=== PATIENT | female | born 1950 | race Caucasian/White ===

== ENCOUNTER 2019-02-19 17:05 | Emergency (ER) | payer OTHER ==
[2019-02-19] MEDS ORDERED: Magnesium Citrate Solution 296 ML Bottle PO ONE (17:33)
--- NOTE | 2019-02-19 17:50 | EDM.PDOC ---
ED HPI GENERAL MEDICAL PROBLEM - General Chief Complaint: Abdominal Pain Stated Complaint: ABDOMINAL PAIN Time Seen by Provider: 02/19/19 17:30 Source of Information: Reports: Patient, RN Notes Reviewed History Limitations: Reports: No Limitations - History of Present Illness INITIAL COMMENTS - FREE TEXT/NARRATIVE: Patient is a 68-year-old female who presents to the ED for the evaluation of lower abdominal pain. The patient states that she feels somewhat constipated, she has been traveling for the past week, and has not had regular bathroom habits since then. She notes her last bowel movement was roughly 5 days ago. She states she normally has a bowel movement every 2 or 3 days. She did try to do a fleets enema today with little to no results. She states there is some thick mucous like secretions coming out but no actual fecal matter. The patient states that she has also taken some senna roughly an hour prior to arrival to the ED. She has been trying to increase her oral fluid intake. She notes that she has not had much of an appetite as she feels bloated, she has been able to eat with no nausea or vomiting. She states that the cramps come and go in nature, and states when they are present they are really severe. Bilateral Lower Abdomen Pain Score (Numeric/FACES): 10 - Related Data Allergies Allergy/AdvReac Type Severity Reaction Status Date / Time ees 400 Allergy Stomach Uncoded 02/19/19 17:17 Ache Home Meds: Home Meds Aspirin 325 mg PO DAILY 02/19/19 [History] Budesonide/Formoterol [Symbicort 80-4.5 MCG] 2 puff INH ASDIRECTED 02/19/19 [ History] Furosemide [Lasix] 40 mg PO DAILY 02/19/19 [History] Gabapentin [Neurontin] 100 mg PO DAILY 02/19/19 [History] Levothyroxine 75 mcg PO TUTHSA 02/19/19 [History] Levothyroxine [Synthroid] 50 mcg PO MOWEFR 02/19/19 [History] Omeprazole Magnesium [Prilosec Otc] 20 mg PO DAILY 02/19/19 [History] Potassium Chloride 10 meq PO DAILY 02/19/19 [History] Simvastatin [Zocor] 40 mg PO DAILY 02/19/19 [History] Zolpidem Tartrate [Ambien] 10 mg PO BEDTIME 02/19/19 [History] oxyCODONE 10 - 325 mg PO ASDIRECTED 02/19/19 [History] Past Medical History Cardiovascular History: Reports: High Cholesterol, Hypertension Respiratory History: Reports: Other (See Below) Other Respiratory History: seasonal allergies Gastrointestinal History: Reports: Chronic Constipation, Hemorrhoids Musculoskeletal History: Reports: Other (See Below) Other Musculoskeletal History: knee scope menicus scraped Endocrine/Metabolic History: Reports: Hypoparathyroidism Other Endocrine/Metabolic History: right thyroidectomy - Past Surgical History GI Surgical History: Reports: Cholecystectomy Female Surgical History: Reports: Hysterectomy Social & Family History - Tobacco Use Smoking Status *Q: Former Smoker Used Tobacco, but Quit: Yes Month/Year Tobacco Last Used: 20 yr - Caffeine Use Caffeine Use: Reports: Coffee, Tea - Recreational Drug Use Recreational Drug Use: No ED ROS GENERAL - Review of Systems Review Of Systems: See Below Constitutional: Reports: No Symptoms HEENT: Reports: No Symptoms Respiratory: Reports: No Symptoms Cardiovascular: Reports: No Symptoms Endocrine: Reports: No Symptoms GI/Abdominal: Reports: Abdominal Pain (lower), Constipation, Flatus. Denies: Diarrhea, Nausea, Vomiting : Reports: No Symptoms Musculoskeletal: Reports: No Symptoms Skin: Reports: No Symptoms Neurological: Reports: No Symptoms Psychiatric: Reports: No Symptoms Hematologic/Lymphatic: Reports: No Symptoms Immunologic: Reports: No Symptoms ED EXAM, GI/ABD - Physical Exam Exam: See Below Exam Limited By: No Limitations General Appearance: Alert, WD/WN, No Apparent Distress Eyes: Bilateral: Normal Appearance Ears: Normal External Exam Nose: Normal Inspection Throat/Mouth: Normal Inspection Head: Atraumatic, Normocephalic Neck: Normal Inspection Respiratory/Chest: No Respiratory Distress, Lungs Clear, Normal Breath Sounds, No Accessory Muscle Use, Chest Non-Tender Cardiovascular: Normal Peripheral Pulses, Regular Rate, Rhythm, No Murmur GI/Abdominal Exam: Normal Bowel Sounds, Soft, Distended (slight distension, patient feels more bloated than normal), Tender (lower abdomen with palpation). No: Guarding, Rigid, Rebound Extremities: Normal Inspection, Normal Capillary Refill Neurological: Alert, Oriented, Normal Cognition, No Motor/Sensory Deficits Psychiatric: Normal Affect, Normal Mood Skin Exam: Warm, Dry, Intact, Normal Color, No Rash Course - Vital Signs Last Recorded V/S: Last Vital Signs Temp 98.2 F 02/19/19 17:14 Pulse 82 02/19/19 17:14 Resp 20 02/19/19 17:14 BP 158/79 H 02/19/19 17:14 Pulse Ox 98 02/19/19 17:14 - Orders/Labs/Meds Orders: Active Orders 24 hr Category Date Time Status Enema [RC] ASDIRECTED Care 02/19/19 19:57 Active Peripheral IV Care [RC] . DIRECTED Care 02/19/19 21:29 Active Abdomen 2V AP Flat Upright [CR] Stat Exams 02/19/19 17:32 Taken Abdomen Pelvis w Cont [CT] Stat Exams 02/19/19 21:28 Taken Sodium Chloride 0.9% [Normal Saline] 1,000 ml Med 02/19/19 21:30 Active IV ASDIRECTED Sodium Chloride 0.9% [Saline Flush] Med 02/19/19 21:29 Active 10 ml FLUSH ASDIRECTED PRN Peripheral IV Insertion Adult [OM.PC] Routine Oth 02/19/19 21:29 Ordered Medication Orders Sodium Chloride (Normal Saline) 1,000 mls @ 999 mls/hr IV ASDIRECTED NEHEMIAH Last Admin: 02/19/19 22:01 Dose: 999 mls/hr Sodium Chloride (Saline Flush) 10 ml FLUSH ASDIRECTED PRN PRN Reason: Keep Vein Open Last Admin: 02/19/19 22:05 Dose: 10 ml Labs: Laboratory Tests 02/19/19 02/19/19 Range/Units 21:34 21:34 WBC 12.87 H (3.98-10.04) K/mm3 RBC 4.90 (3.98-5.22) M/mm3 Hgb 14.6 (11.2-15.7) gm/L Hct 43.6 (34.1-44.9) % MCV 89.0 (79.4-94.8) fl MCH 29.8 (25.6-32.2) pg MCHC 33.5 (32.2-35.5) g/dl RDW Std Deviation 44.7 (36.4-46.3) fL Plt Count 343 (182-369) K/mm3 MPV 9.4 (9.4-12.3) fl Neutrophils % (Manual) 64 H (40-60) % Band Neutrophils % 1 (0-10) % Lymphocytes % (Manual) 28 (20-40) % Atypical Lymphs % 0 % Monocytes % (Manual) 7 (2-10) % Eosinophils % (Manual) 0 L (0.7-5.8) % Basophils % (Manual) 0 L (0.1-1.2) Platelet Estimate Adequate RBC Morph Comment Normal Sodium 141 (136-145) mEq/L Potassium 3.5 (3.5-5.1) mEq/L Chloride 104 (98-107) mEq/L Carbon Dioxide 22 (21-32) mEq/L Anion Gap 18.5 H (5-15) BUN 19 H (7-18) mg/dL Creatinine 1.0 (0.55-1.02) mg/dL Est Cr Clr Drug Dosing 45.78 mL/min Estimated GFR (MDRD) 55 (>60) mL/min BUN/Creatinine Ratio 19.0 H (14-18) Glucose 137 H (80-115) mg/dL Calcium 9.6 (8.5-10.1) mg/dL Total Bilirubin 0.6 (0.2-1.0) mg/dL AST 27 (15-37) U/L ALT 40 (14-59) U/L Alkaline Phosphatase 108 (46-116) U/L Total Protein 7.3 (6.4-8.2) g/dl Albumin 3.8 (3.4-5.0) g/dl Globulin 3.5 gm/dL Albumin/Globulin Ratio 1.1 (1-2) Meds: Medications Generic Name Dose Route Start Last Admin Trade Name Freq PRN Reason Stop Dose Admin Sodium Chloride 1,000 mls @ 999 mls/hr 02/19/19 21:30 02/19/19 22:01 Normal Saline IV 999 mls/hr ASDIRECTED NEHEMIAH Administration Sodium Chloride 10 ml 02/19/19 21:29 02/19/19 22:05 Saline Flush FLUSH 10 ml ASDIRECTED PRN Administration Keep Vein Open Discontinued Medications Generic Name Dose Route Start Last Admin Trade Name Freq PRN Reason Stop Dose Admin Bisacodyl 10 mg 02/19/19 23:04 02/19/19 23:16 Dulcolax RECTAL 02/19/19 23:05 10 mg ONETIME ONE Administration Dicyclomine HCl 20 mg 02/19/19 18:05 02/19/19 18:16 Bentyl PO 02/19/19 18:06 20 mg ONETIME ONE Administration Hydromorphone HCl 1 mg 02/19/19 21:19 Dilaudid IM 02/19/19 21:20 ONETIME ONE Hydromorphone HCl 1 mg 02/19/19 21:53 02/19/19 22:03 Dilaudid IVPUSH 02/19/19 21:54 1 mg ONETIME ONE Administration Iohexol 100 ml 02/19/19 22:15 02/19/19 22:40 Omnipaque-300 IVPUSH 02/19/19 22:16 100 ml ONETIME ONE Administration Magnesium Citrate 296 ml 02/19/19 17:33 02/19/19 17:40 Citrate Of Magnesia PO 02/19/19 17:34 296 ml ONETIME ONE Administration Magnesium Citrate 296 ml 02/20/19 00:13 Citrate Of Magnesia PO 02/20/19 00:14 ONETIME ONE Ondansetron HCl 4 mg 02/19/19 21:29 02/19/19 22:03 Zofran IVPUSH 02/19/19 21:30 4 mg ONETIME ONE Administration - Re-Assessments/Exams Free Text/Narrative Re-Assessment/Exam: 02/19/19 17:49 Patient presents to the ED for evaluation of possible constipation. I have ordered flat and upright abdomen x-rays to be obtained, and a follow-up magnesium citrate, we'll have the nurse give one half bottle and repeat in an hour if no results. The patient will receive a dose of dicyclomine if the abdominal cramping does become severe. 02/19/19 20:00 The patient was reassessed at bedside, and she states that she has not had much for bowel movement yet. I did order the dicyclomine for abdominal cramping, she states that she still is having some abdominal cramping. I did order a soapsuds enema to see if this would help provide her results. 02/19/19 21:08 The RN informs me that the patient was not able to hold in the enema very long, so she is unsure if the patient will have any results from this. 02/19/19 21:31 The patient was reassessed at bedside, and still has not had much for a bowel movement despite having one bottle of mag citrate and a partial soapsuds enema. Although the abdominal x-ray did not show any bowel dilation, the patient does have bowel sounds the patient would like further imaging done, I have ordered an abdominal pelvis CT with contrast hopefully the contrast will provide her some laxative effect as well. I have ordered IV fluids, 1 mg IV Dilaudid, and 4 mg Zofran. I'm hoping that the pain medication will provide her some pain relief so that she may relax and maybe have a bowel movement in the meantime. 02/19/19 23:17 Patient is back from CT, the nurse informed me that she still has not had a very productive bowel movement this time. I did order a Dulcolax suppository to see if this might not provider relief. Official radiology read is pending on the patient's CT as of yet, however there is a diffuse amount of stool in the large colon. There does not appear to be any obstruction. 02/19/19 23:[address] is read, and notes only large colonic stool pertinent. There is bowel wall thickening of the sigmoid colon and rectum. There are inflammatory changes in the adjacent fat. Nonspecific infectious or inflammatory etiology involving the sigmoid colon and rectum. As her labs do not necessarily correlate to any sort of bacterial infection at this time. This is likely just irritation due to the large amount of stool in her colon. At this point in time there is not a lot of other modalities I can provide to the patient. I will discharge the patient home, with instructions for close follow-up if she does not have a good bowel movement by tomorrow morning. Departure - Departure Time of Disposition: 00:01 Disposition: Home, Self-Care 01 Condition: Fair Clinical Impression: Constipation Qualifiers: Constipation type: other constipation type Qualified Code(s): K59.09 - Other constipation - Discharge Information *PRESCRIPTION DRUG MONITORING PROGRAM REVIEWED*: No *COPY OF PRESCRIPTION DRUG MONITORING REPORT IN PATIENT CAITIE: No Instructions: Constipation, Adult, [id number] Referrals: PCP,Not In Area [Primary Care Provider] - Forms: ED Department Discharge Additional Instructions: You have been evaluated in the ED today for your constipation. You have been given magnesium citrate, a laxative, an enema, and a Dulcolax suppository with IV fluids for management of this. You've also have been given some IV pain medications to try to relieve the abdominal cramping. Your abdominal CT demonstrated a large amount of stool in your colon. But there does not appear to be any signs of obstruction or strictures that would cause a blockage. At this point in time there are not a whole lot of other medications that can be provided to help to achieve a bowel movement. You have been given another bottle of magnesium citrate, Please take this tomorrow AM, if you have not had a good bowel movement by then. Recommend that you start taking a stool softener like MiraLAX, or Dulcolax on a daily basis, to provide a good bowel regimen. Please return to the ED if your symptoms should change or worsen. - My Orders Last 24 Hours: My Active Orders 02/19/19 17:32 Abdomen 2V AP Flat Upright [CR] Stat 02/19/19 19:57 Enema [RC] ASDIRECTED 02/19/19 21:28 Abdomen Pelvis w Cont [CT] Stat 02/19/19 21:29 Peripheral IV Care [RC] . DIRECTED Sodium Chloride 0.9% [Saline Flush] 10 ml FLUSH ASDIRECTED PRN Peripheral IV Insertion Adult [OM.PC] Routine 02/19/19 21:30 Sodium Chloride 0.9% [Normal Saline] 1,000 ml IV ASDIRECTED - Assessment/Plan Last 24 Hours: My Active Orders 02/19/19 17:32 Abdomen 2V AP Flat Upright [CR] Stat 02/19/19 19:57 Enema [RC] ASDIRECTED 02/19/19 21:28 Abdomen Pelvis w Cont [CT] Stat 02/19/19 21:29 Peripheral IV Care [RC] . DIRECTED Sodium Chloride 0.9% [Saline Flush] 10 ml FLUSH ASDIRECTED PRN Peripheral IV Insertion Adult [OM.PC] Routine 02/19/19 21:30 Sodium Chloride 0.9% [Normal Saline] 1,000 ml IV ASDIRECTED
[2019-02-19] MEDS ORDERED: Dicyclomine 10 MG Cap PO ONE (18:05)
[2019-02-19] MEDS ORDERED: HYDROmorphone 1 MG/ML Syringe IM ONE (21:19)
[2019-02-19] MEDS ORDERED: Ondansetron 4 MG/2 ML SDV IVPUSH ONE (21:29)
[2019-02-19] MEDS ORDERED: Sodium Chloride 0.9% 10 ML Syringe FLUSH PRN (21:29)
[2019-02-19] MEDS ORDERED: Sodium Chloride 0.9% 1,000 ML IV SCH (21:30)
[2019-02-19] MEDS ORDERED: HYDROmorphone 1 MG/ML Syringe IVPUSH ONE (21:53)
[2019-02-19] MEDS ORDERED: Iohexol 647 MG/ML 100 ML Bottle IVPUSH ONE (22:15)
[2019-02-19] MEDS ORDERED: Bisacodyl 10 MG Supp RECTAL ONE (23:04)
[2019-02-20] MEDS ORDERED: Magnesium Citrate Solution 296 ML Bottle PO ONE (00:13)
--- NOTE | 2019-02-21 19:35 | CR ---
Abdomen: Supine and upright views of the abdomen were obtained. Comparison: No previous abdominal x-ray. Bowel gas pattern appears within normal limits. Minimal increased stool is seen within the colon. Surgical clips are seen from prior cholecystectomy. Calcifications are noted within the pelvis which are compatible with phleboliths. No free air is seen. Slight scoliosis is noted within the spine on the upright view. Impression: 1. Incidental findings. Diagnostic code #2
--- NOTE | 2019-02-22 06:22 | CT ---
CT abdomen and pelvis Technique: Multiple axial sections were obtained from above the dome of the diaphragm inferiorly through the pubic symphysis. Intravenous contrast was utilized. Oral contrast also utilized. Delayed images were obtained through the bladder. Comparison: Prior abdominal x-ray performed earlier on the same day (5:45 PM). Findings: Bowel wall thickening with surrounding inflammatory change is seen within the sigmoid colon as well as bowel wall thickening within the rectum. Bowel wall thickening is also noted within portions of the descending and transverse colon. Mild increased stool is noted within portions of the colon. Small portion of the visualized lung bases shows nothing acute. Liver contains no focal abnormality. Spleen appears within normal limits. Adrenal glands show no nodule. Kidneys show symmetric contrast enhancement without hydronephrosis or mass. Pancreas appears within normal limits. Aorta shows no aneurysm. No retroperitoneal adenopathy or mesenteric abnormalities are seen. Incidental note of small fat-containing umbilical hernia. Appendix is felt to be partially visualized which appears within normal limits. No discrete pelvic mass is noted. Prior hysterectomy is incidentally noted. Delayed images show contrast within the bladder. Bone window settings were reviewed showing mild degenerative change scattered within the spine. Impression: 1. Bowel wall thickening within portions of transverse and descending colon. Bowel wall thickening with inflammatory change being seen within the sigmoid colon. Bowel wall thickening also noted within the rectum. Findings are compatible with nonspecific colitis. 2. Mild increased stool is noted throughout colon. 3. Other incidental findings as noted above. Diagnostic code #3 Agree with preliminary report issued by [facility] ([facility] preliminary report dictated on 02/20/19, 12:53 AM Central Time)
== END 2019-02-20 01:00 | disposition home or self-care (01) ==
LOC: JD.ED 17:05
DX: K59.09 Other constipation (principal); I10 Essential (primary) hypertension; Z90.49 Acquired absence of other specified parts of digestive tract; Z90.710 Acquired absence of both cervix and uterus; Z79.899 Other long term (current) drug therapy; Z88.8 Allergy status to other drugs, medicaments and biological substances; Z79.82 Long term (current) use of aspirin; Z87.891 Personal history of nicotine dependence
CPT/HCPCS: 36415; 74019; 74177; 80053; 85007; 85027; 96361; 96374; 96375; 99284; A9270; J1170; J2405; J7040; Q9967